=== PATIENT | female | born 1980 | race Asian ===

== ENCOUNTER 2020-02-02 12:02 | Emergency (ER) | payer OTHER ==
[2020-02-02 13:07] VITALS: BP 123/78
[2020-02-02] MEDS ORDERED: Ibuprofen TAB* 600 MG PO ONE (13:34)
--- NOTE | 2020-02-02 14:14 | UC ---
Hand/Wrist HPI - HPI Summary HPI Summary: pain left hand x 1 day pain is 8 out 10 , worse with movement, better with rest and ibuprofen injury at work / as she was milking a cow , the cow moved its head and pushed the pts hand to the osman . pain and swelling of the left proximal thumb , difficulty moving the thump due to pain and swelling - History Of Current Complaint Chief Complaint: UCUpperExtremity Stated Complaint: LEFT HAND COMPLAINT Time Seen by Provider: 02/02/20 14:04 Hx Obtained From: Patient Hx Last Menstrual Period: ~01/17/20 ?: No Onset/Duration: Sudden Onset, Lasting Days - 1, Still Present Severity Initially: Moderate Severity Currently: Moderate Pain Intensity: 6 Character Of Pain: Aching, Throbbing, Stiffness Aggravating Factor(s): Movement, Lifting, Flexion Alleviating Factor(s): Rest, Ice Associated Signs And Symptoms: Positive: Swelling, Redness, Weakness. Negative : Bruising, Fever, Numbness/Tingling, Other - Allergies/Home Medications Allergies/Adverse Reactions: Allergies Allergy/AdvReac Type Severity Reaction Status Date / Time No Known Allergies Allergy Verified 02/02/20 13:04 Home Medications: Home Medications NK [No Home Medications Reported] 02/02/20 [History Confirmed 02/02/20] PMH/Surg Hx/FS Hx/Imm Hx Previously Healthy: Yes - Family History Known Family History: Positive: Non-Contributory - Social History Alcohol Use: Rare Substance Use Type: None Smoking Status (MU): Never Smoked Tobacco Review of Systems All Other Systems Reviewed And Are Negative: Yes Is Patient Immunocompromised?: No Physical Exam Triage Information Reviewed: Yes Appearance: Well-Appearing, No Pain Distress, Well-Nourished Vital Signs: Initial Vital Signs Temp 98.5 F 02/02/20 13:04 Pulse 84 02/02/20 13:04 Resp 18 02/02/20 13:04 BP 123/78 02/02/20 13:04 Pulse Ox 97 02/02/20 13:04 Vital Signs Reviewed: Yes Eye Exam: Normal Eyes: Positive: Conjunctiva Clear ENT: Positive: Normal ENT inspection, Hearing grossly normal, Pharynx normal Neck exam: Normal Neck: Positive: Supple, Nontender, No Lymphadenopathy Respiratory: Positive: Chest non-tender, Lungs clear, Normal breath sounds Cardiovascular: Positive: RRR, No Murmur, Pulses Normal Musculoskeletal: Positive: Other: - left thumb: + swelling proximal thumb at the thiner muscle, tenderness proximal phalangs and MP joint . limited ROM on flexion and extension / limited strength Diagnostics - Radiology No standard instances Radiology Interpretation Completed By: Radiologist Summary of Radiographic Findings: xray left hand : IMPRESSION: NO ACUTE OSSEOUS INJURY. IF SYMPTOMS PERSIST, RECOMMEND REPEAT IMAGING. Hand/Wrist Course/Dx - Differential Dx/Diagnosis Provider Diagnosis: Sprain of left thumb Discharge ED - Sign-Out/Discharge Documenting (check all that apply): Patient Departure All imaging exams completed and their final reports reviewed: Yes - Discharge Plan Condition: Stable Disposition: HOME Referrals: No Primary Care Phys,NOPCP [Primary Care Provider] - - Billing Disposition and Condition Condition: STABLE Disposition: Home
== END 2020-02-02 14:30 | disposition home or self-care (01) ==
LOC: UCCORT 12:02
DX: S63.602A Unspecified sprain of left thumb, initial encounter (principal); X50.9XXA Other and unspecified overexertion or strenuous movements or postures, initial encounter; Y93.K2 Activity, milking an animal; Y92.9 Unspecified place or not applicable
CPT/HCPCS: 99202; A9270-GY; G0463